=== PATIENT | male | born 1995 | race Caucasian/White ===

== ENCOUNTER → 2018-05-13 | Outpatient (CLI) | payer OTHER | LOC: M WUC 15:43 | DX: S90.32XA Contusion of left foot, initial encounter (principal); X58.XXXA Exposure to other specified factors, initial encounter; Y92.89 Other specified places as the place of occurrence of the external cause; Y99.9 Unspecified external cause status; Y93.9 Activity, unspecified | CPT/HCPCS: 73630 ==

== ENCOUNTER → 2018-05-31 | Outpatient (CLI) | payer OTHER | LOC: M WUC 10:47 | DX: M79.641 Pain in right hand (principal) | CPT/HCPCS: 73130 ==

== ENCOUNTER 2019-06-24 10:45 | Emergency (ER) | payer BC, OTHER ==
[~2019-06-24] VITALS: Ht 182.9 cm; Wt 99.0 kg
[2019-06-24] MEDS ORDERED: NS 1,000 ML IV ONE (11:15)
[2019-06-24] MEDS ORDERED: METOCLOPRAMIDE INJ 10MG/2ML VIAL (J2765) IV ONE (11:15)
[2019-06-24] MEDS ORDERED: KETOROLAC 30 MG/ML VIAL (J1885) IV ONE (11:15)
--- NOTE | 2019-06-24 12:21 | REP ---
CT HEAD WITHOUT CONTRAST: HISTORY: Headache. There is no intraparenchymal hemorrhage, mas, or midline shift. The ventricular system is normal in appearance. Cavum septi pellucidi and vergae are present. There is no extracerebral collection. The visualized sinuses are clear. IMPRESSION: There is no intracranial lesion. Electronically Signed by Kendrick Soni MD 06/24/2019 12:48 P
[2019-06-24 14:45] VITALS: BP 142/82
== END 2019-06-24 15:17 | disposition home or self-care (01) ==
LOC: M ED 10:45
DX: G43.909 Migraine, unspecified, not intractable, without status migrainosus (principal)
CPT/HCPCS: 70450; 96374; 96375; 99284; J1885; J2765

== ENCOUNTER 2024-09-17 09:02 | Emergency (ER) | payer OTHER ==
[~2024-09-17] VITALS: Ht 180.3 cm; Wt 97.7 kg
[2024-09-17] MEDS: hydrOXYzine 50 MG TAB PO ONE (11:48)
[2024-09-17 12:38] LABS: BASO % 0.3 % (0.0-1.0); EOS % 0.1 % (0.0-3.0); HEMATOCRIT 48.7 % (42.0-52.0); HEMOGLOBIN 17.4 g/dl (13.5-17.5); LYMPH # 1.9 10^3/uL (1.5-5.0); LYMPH % 14.1 % (24.0-44.0); MEAN CORPUSCULAR HEMOGLOBIN 30.8 pg (27.0-33.0); MEAN CORPUSCULAR HGB CONC 35.7 g/dl (32.0-36.5); MEAN CORPUSCULAR VOLUME 86.2 fl (80.0-96.0); MONO # 0.7 10^3/uL (0.0-0.8); MONO % 5.4 % (2.0-8.0); NEUTROPHILS # 10.5 10^3/uL (1.5-8.5); NEUTROPHILS % 79.6 % (36.0-66.0); PLATELET COUNT, AUTOMATED 297 10^3/uL (150-450); RED BLOOD COUNT 5.65 10^6/uL (4.30-6.10); WHITE BLOOD COUNT 13.2 10^3/uL (4.0-10.0)
[2024-09-17 13:03] LABS: ALBUMIN 4.4 G/DL (3.2-5.2); BILIRUBIN,DIRECT 0.2 MG/DL (<0.4); BILIRUBIN,TOTAL 0.9 MG/DL (0.3-1.2); TOTAL PROTEIN 8.1 G/DL (5.7-8.2)
[2024-09-17] MEDS ORDERED: ISOVUE-370 76% 100ML VIAL As Ordered ONE (13:03)
[2024-09-17] MEDS: ONDANSETRON 4MG 2ML VIAL IV ONE (14:01)
[2024-09-17] MEDS ORDERED: HOME MED LIST COMPLETE! XX SCH (14:50)
[2024-09-17 15:14] VITALS: BP 138/81; TEMP 98.2; O2SAT 99
== END 2024-09-17 15:15 | disposition home or self-care (01) ==
LOC: M ED 09:02
DX: A08.4 Viral intestinal infection, unspecified (principal); Z88.8 Allergy status to other drugs, medicaments and biological substances
CPT/HCPCS: 74177; 80047; 80076; 83690; 85025; 96374; 99284; J2405; Q9967